=== PATIENT | female | born 1985 | race African-American/Black ===

== ENCOUNTER 2025-07-12 18:03 | Emergency (ER) | payer BC, SELFPAY ==
--- NOTE | 2025-07-12 18:07 | ED_ITS ---
HPI - Wound/Laceration General Chief Complaint: Wound/Laceration Stated Complaint: L FINGER LACERATION Time Seen by Provider: 07/12/25 18:06 Source: patient Mode of arrival: ambulatory Limitations: no limitations History of Present Illness HPI narrative: Ankita is a 40-year-old female patient stenting to the clinic today with complaints of a left finger laceration. She reports she was cutting fruit this evening and cut her left index finger and middle finger. Has a superficial laceration to the left 3rd dorsal distal index finger not involving the nail and a skin avulsion to the left dorsal index finger going from the proximal D IP joint all the way past the PIP joint-approximately 2.5 cm. Avulsion laceration actively bleeding. Tetanus shot up-to-date. Related Data Home Medications ?Medication ?Instructions ?Recorded ?Confirmed ?Last Taken ?Type amlodipine 10 mg tablet mg 07/12/25 Unknown History hydrochlorothiazide 25 mg tablet mg 07/12/25 Unknown History rosuvastatin 10 mg tablet mg 07/12/25 Unknown History Allergies Allergy/AdvReac Type Severity Reaction Status Date / Time No Known Allergies Allergy Verified 07/12/25 18:13 Review of Systems Review of Systems: Pertinent positives per HPI. Patient denies any fever, chills, rash, headache, visual changes, dizziness, cough, runny nose, sore throat, shortness of breath, chest pain, palpitations, nausea, vomiting, diarrhea, constipation, abdominal pain, or any urinary issues. PMFSH Comments At the time of my signature, I reviewed and agree with the nursing past medical, surgical, social, and family history. There is no relevant family history pertinent to the patient complaint. Exam Narrative: General: Well-developed, well nourished, in no apparent distress Head: Normocephalic, atraumatic. Cardio: Regular rate and rhythm, s1 and s2 normal, no murmur appreciated. Resp: Clear to auscultation bilaterally, no rhonchi, rales, wheezing or rubs. Integumentary: [place], warm, and dry, superficial irregular 1.5 cm laceration to the left 3rd dorsal distal finger about nail involvement, 2.5 cm skin avulsion to the left index finger over the PIP joint, flap of skin adheared underneath the finger, bleeding not controlled. Course Course Emergency Course: Portions of this record may have been created with voice recognition software. Level of Care: Express Care Visit Vital Signs Vital signs: Vital Signs Temperature 36.5 C 07/12/25 18:18 Pulse Rate 79 07/12/25 18:18 Respiratory Rate 16 07/12/25 18:18 Blood Pressure 135/62 07/12/25 18:18 Pulse Oximetry 100 07/12/25 18:18 Temperature 36.5 C 07/12/25 18:18 Pulse Rate 79 07/12/25 18:18 Respiratory Rate 16 07/12/25 18:18 Blood Pressure 135/62 07/12/25 18:18 Pulse Oximetry 100 07/12/25 18:18 Vital signs reviewed Procedures Laceration Laceration 1: Date: 07/12/25 Site: hand (left index finger) Side (If applicable): left Size (cm): 2.5 Description: flap and irregular Depth: simple, single layer Local Anesthetic: lidocaine 1% Amount of anesthesia used (mL): 10 Pre-repair: wound explored and irrigated ====== Skin Level ====== Skin layer closed with: nylon Size (cm): 5-0 Number of sutures: 9 Technique: simple, interrupted ====== Subcutaneous Layer ====== ====== Muscle Layer ====== ====== Tendon Layer ====== Dressing: Verbal consent obtained for laceration repair. Risk and benefits explained and patient voiced understanding. Area was cleansed with antiseptic wound wash and a 27 gauge needle was then used to instill (10) ml of 1% lidocaine without epi into the wound edges. Area was prepped and draped using sterile technique. A 5-0 suture on a p needle was used to place (9) interrupted sutures bringing the wound edges together- well approximated. Patient tolerated procedure well. Sterile tube gauze dressing applied. MDM - Wound/Laceration MDM Narrative Medical decision making narrative: At the time of visit patient is resting comfortably on the exam table. Patient appears to be nontoxic. Complaints of a left finger laceration. She reports she was cutting fruit this evening and cut her left index finger and middle finger. Has a superficial laceration to the left 3rd dorsal distal index finger not involving the nail and a skin avulsion to the left dorsal index finger going from the proximal D IP joint all the way past the PIP joint-approximately 2.5 cm. Avulsion laceration actively bleeding. Tetanus shot up-to-date. On exam patient has a superficial cut to the left 3rd dorsal finger measuring approximately 1.5 cm and has a skin avulsion to the dorsal left index finger measuring approximately 2.5 cm. Wound care: Wound was initially cleansed with sterile saline and antiseptic wound wash. Digital block was performed in the finger using lidocaine without epi. Attempted Surgicel dressing but could not controlled bleeding. Consider using cautery and was going to use it up bedside-upon further evaluation of the left index finger patient still has flap of skin that was adheared underneath the finger blending with the skin tone. Area was cleansed with normal saline and antiseptic wound wash and applied over the wound and sutured over the wound bed using 9 interrupted sutures. Bleeding controlled. Patient tolerated well. Offer to place sutures to superficial laceration to the left distal 3rd finger and patient declined thinks this will heal on its own. Wound was washed with normal saline and antiseptic wound wash and Triple antibiotic ointment and a Band-Aid was applied. Procedure: Laceration repair was performed to skin avulsion-9 interrupted sutures were placed bringing the wound edges were well approximate. Patient tolerated procedure well. Tube gauze dressing was applied. Plan: Patient has skin avulsion to the left index finger with laceration repair and a superficial laceration to the left 3rd dorsal finger. No nail involvement. Avulsion laceration was repaired over the PIP joint. Recommend follow-up with Dr. Iraheta- hand specialist as the laceration may need debridement/further evaluation. Recommend sutures removed in 10-14 days. Will send in Rx for cephalexin to cover for secondary infection. Metal finger splint given. Supportive measures were discussed with the patient and they voiced understanding discharge instructions and agrees to treatment plan. Return precautions reviewed Differential Diagnosis Differential diagnosis: Likely laceration, abscess, abrasion and avulsion of skin Discharge Plan Discharge Clinical Impression: Finger laceration, Avulsion of skin of finger Patient Disposition: Home Condition: Stable Instructions: Antibiotic Form, Finger Laceration (ED), Skin Avulsion (ED) Additional Instructions: Leave bandage on for 24 hours then may remove thin apply nonstick adhesive dressing with metal finger splint Avoid bending your left index finger- wear metal finger splint as discussed Keep wound clean and dry May wash daily with soap and water and pat dry Keep left hand elevated May apply ice pack to the area to help control bleeding Sutures out in 10-14 days Take cephalexin as prescribed Watch for signs and symptoms of infection- redness, streaking, swelling, purulent discharge, or increase in pain. Follow up with your Dr. Iraheta- hand specialist- call office on Tuesday to schedule an appointment. Patient Language: Ukrainian Prescriptions: New cephalexin 500 mg capsule 500 mg PO Q12H 7 Days Qty: 14 0RF No Action amlodipine 10 mg tablet hydrochlorothiazide 25 mg tablet rosuvastatin 10 mg tablet Follow-up/Referrals: Jai Iraheta MD [Physician, Plastic Surgery] - 3 Days Referral Note: Skin avulsion to dorsal left index finger-2.5cm in length over pip joint- avulsed skin was sutured back into place, bleeding controlled. Finger splint applied- Recommend sutures out in 10-14 days. Clinical Impression: Avulsion of skin of finger; Finger laceration UNKNOWN,DOCTOR [Non-Staff] Time of Disposition: 19:26 Quality NIHSS Nursing Documentation ED NIHSS nursing documentation: reviewed/agree
[2025-07-12 18:18] VITALS: BP 135/62; PULSE 79; RESP 16; TEMP 36.5; O2SAT 100
== END 2025-07-12 19:41 | disposition home or self-care (01) ==
PROVIDERS: Emergency Provider Nurse Practitioner Family
DX: S61.211A Laceration without foreign body of left index finger without damage to nail, initial encounter (principal); W26.0XXA Contact with knife, initial encounter; Y93.G1 Activity, food preparation and clean up; S61.213A Laceration without foreign body of left middle finger without damage to nail, initial encounter; I10 Essential (primary) hypertension; E78.00 Pure hypercholesterolemia, unspecified
CPT/HCPCS: 12001; 99203; G0463; J2003